=== PATIENT | female | born 1970 | race Caucasian/White ===

== ENCOUNTER 2019-05-06 06:04 | Emergency (ER) | payer OTHER ==
--- NOTE | 2019-05-06 06:28 | ED Physician Documentation ---
PD HPI UPPER EXT INJURY - Stated complaint Stated Complaint: R SHOULD INJ - Chief complaint Chief Complaint: Trauma Ext - History obtained from History obtained from: Patient - History of Present Illness Location: Right, Clavicle Type of injury: Fall Where injury occurred: Home Timing - onset: Today Timing - duration: Other (Just prior to arrival) Timing - details: Abrupt onset Pain level max: 8 Pain level now: 0 Improved by: Rest Associated symptoms: Swelling. No: Weakness, Numbness, Tingling Similar symptoms before: Has not had sx before Recently seen: Not recently seen - Additonal information Additional information: This is a 49-year-old woman who is visiting her mom from [facility]. She is gone to be here for a couple more weeks and she went out to water the garden this morning lost her footing on the steps coming back into the house and fell into the garden bed. She landed on the right shoulder she heard a popping sound. She did not hit her head or pass out. She says is all she is not moving there is not really any pain but when she tries to move in certain ways the pain goes up to 7-8 out of 10 and she can see a deformity around the collarbone. She did not take any medications for the pain. Denies numbness or tingling down into the fingers and no neck pain. Review of Systems Respiratory: denies: Dyspnea Musculoskeletal: reports: Other (Pain in the right clavicle). denies: Neck pain PD PAST MEDICAL HISTORY - Past Medical History Past Medical History: Yes - Past Surgical History Past Surgical History: Yes Ortho: Other - Present Medications Home Medications: Ambulatory Orders Medication Instructions Recorded Confirmed Hydrocodone/Acetaminophen 1 - 2 each PO Q6H PRN #14 tablet 05/06/19 [Hydrocodon-Acetaminophen 5-325] - Allergies Allergies/Adverse Reactions: Allergies Allergy/AdvReac Type Severity Reaction Status Date / Time No Known Drug Allergies Allergy Verified 05/06/19 06:12 - Social History Does the pt smoke?: No Smoking Status: Never smoker Does the pt drink ETOH?: Yes ETOH Use: Wine Does the pt have substance abuse?: No - Immunizations Immunizations are current?: Yes - POLST Patient has POLST: No PD ED PE NORMAL - Vitals Vital signs reviewed: Yes - General General: Alert and oriented X 3, No acute distress, Well developed/nourished - HEENT HEENT: Atraumatic, PERRL, Moist mucous membranes - Respiratory Respiratory: No respiratory distress - Extremities Extremities: Other (Obvious deformity of the midshaft of the right clavicle. There is tenderness. Limited range of motion about the right shoulder just because of the pain in the clavicle. She has 2+ radial pulse bilaterally 5 out of 5 sql ssrs developer strength. Sensation is intact to light touch in the upper extremities bilaterally) - Neuro Neuro: Alert and oriented X 3, No motor deficit, No sensory deficit - Psych Psych: Normal mood, Normal affect Results - Vitals Vitals: Vital Signs - 24 hr 05/06/19 06:08 Temperature 36.6 C Heart Rate 94 Respiratory 16 Rate Blood Pressure 113/87 H O2 Saturation 99 Oxygen O2 Source Room air - Rads (name of study) R clavicle Radiology: EMP read indepedently (mid-shaft displaced fracture), EMP read contemporaneously PD MEDICAL DECISION MAKING - ED course Complexity details: d/w patient ED course: Patient declined any pain medications here. Her x-ray does show a mid shaft displaced clavicular fracture. Results were discussed with her. She will be referred to a local orthopedist for follow-up since she is going to be in town for another 3 weeks. She is also provided a prescription for hydrocodone and we discussed dosing with ibuprofen and not to use additional Tylenol with the hydrocodone. Return to the emergency department if she has increasing pain numbness or tingling into the hand or other problems arise. Departure - Departure Disposition: 01 Home, Self Care Clinical Impression: Clavicle fracture, shaft Qualifiers: Encounter type: initial encounter Fracture type: closed Fracture alignment: displaced Laterality: right Qualified Code(s): S42.021A - Displaced fracture of shaft of right clavicle, initial encounter for closed fracture Condition: Good Instructions: ED Fx Clavicle Follow-Up: RENE GASPAR [Physician No Access] - Prescriptions: Hydrocodone/Acetaminophen [Hydrocodon-Acetaminophen 5-325] 1 - 2 each PO Q6H PRN #14 tablet PRN Reason: pain Comments: The sling is for comfort. You should contact the orthopedist for a follow-up appointment. Take ibuprofen 3 to 4 tablets every 8 hours with food. Give a prescription for hydrocodone if you need it for more severe pain but do not drive or operate machinery or take additional Tylenol with that. You can apply ice directly over the fracture and that may help some with the pain.
--- NOTE | 2019-05-06 07:18 | XRAY Report ---
Reason: Pain and deformity; fell into garden bed Procedure Date: 05/06/2019 Accession Number: [id number] / [id number] Procedure: XR - Clavicle RT CPT Code: FULL RESULT: EXAM: RIGHT CLAVICLE RADIOGRAPHY EXAM DATE: 05/06/2019 06:50 AM. CLINICAL HISTORY: Pain and deformity; fell into garden bed. COMPARISON: None. TECHNIQUE: 2 views. FINDINGS: Bones: Comminuted mid distal right clavicle shaft fracture with cephalad displacement of the medial fragment up to 9 mm and slight inferior angulation of the lateral distal fragment. Adjacent intervening fracture fragments are present. Joints: The acromioclavicular and sternoclavicular joints are normal. No subluxation. Soft Tissues: Soft tissue edema. IMPRESSION: 1. Comminuted mid distal right clavicle fracture. RADIA
[2019-05-06 07:25] VITALS: BP 117/74
== END 2019-05-06 07:27 | disposition home or self-care (01) ==
LOC: ED 06:04
DX: S42.021A Displaced fracture of shaft of right clavicle, initial encounter for closed fracture (principal); W10.9XXA Fall (on) (from) unspecified stairs and steps, initial encounter; Y93.H2 Activity, gardening and landscaping; Y92.007 Garden or yard of unspecified non-institutional (private) residence as the place of occurrence of the external cause
CPT/HCPCS: 99283